=== PATIENT | male | born 1950 | race African-American/Black ===

== ENCOUNTER 2018-12-09 10:39 | Emergency (ER) | payer MEDICARE, OTHER ==
[~2018-12-09] VITALS: Ht 188 cm; Wt 145.4 kg
[2018-12-09] MEDS ORDERED: METO25 PO (10:58)
[2018-12-09] MEDS ORDERED: GLIP5 PO (10:58)
[2018-12-09] MEDS ORDERED: DILT-39 PO (10:58)
[2018-12-09] MEDS ORDERED: AMLO2.5T4 PO (10:58)
[2018-12-09] MEDS ORDERED: METF-960 PO (10:58)
[2018-12-09] MEDS ORDERED: HYDR25TA PO (10:58)
[2018-12-09] MEDS ORDERED: KETOROLAC TROMETHAMINE 30 MG/ML VIAL IM ONE (11:15)
[2018-12-09 13:52] VITALS: BP 129/81
== END 2018-12-09 14:20 | disposition home or self-care (01) ==
LOC: EMS 10:39
DX: S63.91XA Sprain of unspecified part of right wrist and hand, initial encounter (principal); S16.1XXA Strain of muscle, fascia and tendon at neck level, initial encounter; M19.90 Unspecified osteoarthritis, unspecified site; E11.9 Type 2 diabetes mellitus without complications; I10 Essential (primary) hypertension; Z79.82 Long term (current) use of aspirin; V43.92XA Unspecified car occupant injured in collision with other type car in traffic accident, initial encounter; Y93.89 Activity, other specified; Y92.89 Other specified places as the place of occurrence of the external cause; Y99.8 Other external cause status
CPT/HCPCS: 29125; 72125; 73110; 96372; 99284; J1885